=== PATIENT | female | born 1985 | race Caucasian/White ===

== ENCOUNTER 2020-11-29 19:36 | Emergency (ER) | payer OTHER ==
[2020-11-29 20:33] LABS: HEMOGLOBIN 14.2 gm/dl (12.3-15.3); RED BLOOD COUNT 4.67 M/UL (4.00-5.10); WHITE BLOOD COUNT 9.7 K/UL (4.5-11.0)
[2020-11-29 20:57] LABS: BUN/CREATININE RATIO 19 (0-10)
[2020-11-30] MEDS ORDERED: PRENATAL ONE T1 EAC1 PO (00:45)
[2020-11-30] MEDS ORDERED: BENTYL 20MG TAB20 MG PO (00:45)
[2020-11-30] MEDS ORDERED: REGLAN10 MG PO (00:45)
== END 2020-11-30 01:10 | disposition home or self-care (01) ==
LOC: ER1 19:36
PROVIDERS: Nurse Practitioner
DX: O9A.211 Injury, poisoning and certain other consequences of external causes complicating pregnancy, first trimester (principal); M54.5 Low back pain; R10.9 Unspecified abdominal pain; V49.40XA Driver injured in collision with unspecified motor vehicles in traffic accident, initial encounter; Y92.410 Unspecified street and highway as the place of occurrence of the external cause
CPT/HCPCS: 76830; 80053; 81001; 84702; 85025; 99284